=== PATIENT | female | born 1960 | race Caucasian/White ===

== ENCOUNTER 2018-01-21 11:45 | Emergency (ER) | payer BC ==
[~2018-01-21] VITALS: Ht 167.6 cm; Wt 70.1 kg
[2018-01-21 11:59] VITALS: BP 141/77; PULSE 73; RESP 16; TEMP 97.7; O2SAT 98
[2018-01-21] MEDS ORDERED: TRIAPOW6 TOPICAL (12:20)
[2018-01-21] MEDS ORDERED: LOVA40TA PO (12:20)
[2018-01-21] MEDS ORDERED: OMEP20TA93 PO (12:20)
[2018-01-21] MEDS ORDERED: PRED20 PO (12:20)
[2018-01-21] MEDS ORDERED: BENA25CA4 PO (12:20)
[2018-01-21] MEDS ORDERED: FEXO15TA PO (12:20)
[2018-01-21] MEDS ORDERED: METO50TA PO (12:20)
[2018-01-21] MEDS ORDERED: diphenhydrAMINE HCL 50 MG/ML VIAL IM ONE (13:15)
[2018-01-21] MEDS ORDERED: DEXAMETHASONE SOD PHOS 4 MG/ML VIAL IM ONE (13:15)
--- NOTE | 2018-01-21 13:53 | PD ---
HPI Chief Complaint: Skin Problem Time Seen by Provider: 12:32 Travel History International Travel<30 days: No Contact w/Intl Traveler<30days: No Traveled to known affect area: No History of Present Illness HPI This is a 57-year-old female here with a pruritic rash to her extremities and trunk for the last 2 weeks. She was recently seen by a cream separator operator who placed her on prednisone. She reports the symptoms originally improved and then returned yesterday. She denies any oral swelling. No wheezing. No new medications. Symptom severity is moderate. No aggravating or alleviating factors. PFSH Past Medical History Cancer: Yes (previous breast CA) Cardiovascular Problems: Yes (htn and high chol on meds) High Cholesterol: Yes Diminished Hearing: No Hypertension: Yes Radiation Therapy: Yes (previously ) Tetanus Vaccination: < 5 Years Influenza Vaccination: No ?: Not Past Surgical History Other Surgery: Yes (lumpectomy ) Social History Alcohol Use: Yes (daily) Tobacco Use: No Substance Use: No Allergies-Medications (Allergen,Severity, Reaction): Coded Allergies: No Known Allergies (Unverified , 01/21/18) Reported Meds & Prescriptions Reported Meds & Active Scripts Active Reported Triamcinolone (Triamcinolone (Bulk)) 1 Pow Pow 0.1 Mg TOPICAL BID Benadryl Allergy (Diphenhydramine HCl) 25 Mg Cap 1 Tab PO DAILY Omeprazole 20 Mg Tab 20 Mg PO DAILY Yamilet Allergy (Fexofenadine HCl) 180 Mg Tab 180 Mg PO DAILY Prednisone 20 Mg Tab 20 Mg PO DIRECTED 40 MG twice a day x 3 days, then 20 MG daily x 3 days, then 10 MG daily x 3 days Lovastatin 40 Mg Tab 40 Mg PO DAILY Metoprolol Tartrate 50 Mg Tab 50 Mg PO BID Review of Systems Except as stated in HPI: all other systems reviewed are Neg General / Constitutional: No: Fever Eyes: No: Visual changes HENT: No: Headaches Cardiovascular: No: Chest Pain or Discomfort Respiratory: No: Shortness of Breath Gastrointestinal: No: Abdominal Pain Genitourinary: No: Dysuria Musculoskeletal: No: Pain Skin: Positive Rash Neurologic: No: Weakness Physical Exam Narrative GENERAL: Alert and well-appearing 57-year-old female SKIN: Slightly raised erythematous macular rash to extremities and trunk. The rash is blanchable. HEAD: Normocephalic. EYES: No injection or drainage. ENT: No pharyngeal erythema. No oral airway swelling. Uvula is midline. Airways patent. NECK: Supple, trachea midline. No meningismus CARDIOVASCULAR: Regular rate and rhythm without murmurs, gallops, or rubs. RESPIRATORY: Breath sounds equal bilaterally. No accessory muscle use. No wheezing. GASTROINTESTINAL: Abdomen soft, non-tender, nondistended. MUSCULOSKELETAL: No cyanosis, or edema. BACK: Nontender without obvious deformity. No CVA tenderness. Data Data Last Documented VS Vital Signs Date Time Temp Pulse Resp B/P (MAP) Pulse Ox O2 Delivery O2 Flow Rate FiO2 01/21/18 11:59 97.7 73 16 141/77 (98) 98 Orders Orders Dexamethasone Inj (Decadron Inj) (01/21/18 13:15) Diphenhydramine Inj (Benadryl Inj) (01/21/18 13:15) [facility] Medical Decision Making Medical Screen Exam Complete: Yes Emergency Medical Condition: Yes Differential Diagnosis Idiopathic urticaria, allergic reaction, eczema Narrative Course 57-year-old female here with pruritic rash consistent with urticaria. There is no oral airway involvement. She is nontoxic appearing. She is currently on 40 mg of prednisone, Zyrtec, H2 RA seamus. She was given a shot of Decadron and Benadryl. On reexam she reports symptom improvement and less itching. She will be discharged home with instruction to increase her prednisone to 60 mg for the next several days and contact her cream separator operator. She is also instructed to start Benadryl 25 mg every 6 hours. Return precautions discussed. She verbalized understanding and agrees to plan Diagnosis Primary Impression: Rash and nonspecific skin eruption Referrals: Primary Care Physician Additional Instructions: Continue your current medications. Add Benadryl 25 mg every 6 hours for itching. Call and schedule a follow-up appointment with your cream separator operator. Lesley Longoria January 21, 2018 13:53
== END 2018-01-21 14:05 | disposition home or self-care (01) ==
LOC: PHEFT 11:45
DX: R21 Rash and other nonspecific skin eruption (principal); E78.00 Pure hypercholesterolemia, unspecified; I10 Essential (primary) hypertension; Z85.3 Personal history of malignant neoplasm of breast
CPT/HCPCS: 96372; 99283; J1100; J1200